=== PATIENT | male | born 1960 | race Caucasian/White ===

== ENCOUNTER 2017-07-11 22:36 | Emergency (ER) | payer MEDICAID, OTHER, SELFPAY ==
--- NOTE | 2017-07-11 23:02 | EDM.PDOC ---
ED HPI GENERAL MEDICAL PROBLEM - General Chief Complaint: ENT Problem Stated Complaint: NOSE BLEED Time Seen by Provider: 07/11/17 22:40 Source of Information: Reports: Patient History Limitations: Reports: No Limitations - History of Present Illness INITIAL COMMENTS - FREE TEXT/NARRATIVE: Ji comes to [facility] ED with a 30 min hx of acute nosebleed primarily from the R nares. There is no PMH of epistaxis. He takes 1 baby ASA daily. His general health includes HBP and hypercholesterolemia. nose Pain Score (Numeric/FACES): 10 - Related Data Allergies Allergy/AdvReac Type Severity Reaction Status Date / Time celecoxib [From Celebrex] Allergy Rash Verified 07/12/17 00:01 diclofenac sodium Allergy Stomach Verified 07/12/17 00:01 [From Voltaren] Upset Home Meds: Home Meds Aspirin [Ecotrin] 81 mg PO DAILY 06/11/15 [History] Lisinopril/Hydrochlorothiazide [Zestoretic 20-25 mg Tablet] 1 each PO DAILY [History] Past Medical History HEENT History: Reports: Impaired Vision Cardiovascular History: Reports: Hypertension Respiratory History: Reports: SOB, Other (See Below) Other Respiratory History: 5 MONTHS AGO Gastrointestinal History: Reports: GERD Musculoskeletal History: Reports: Other (See Below) Other Musculoskeletal History: RIGHT KNEE PAIN Endocrine/Metabolic History: Reports: Obesity/BMI 30+ - Past Surgical History GI Surgical History: Reports: Hernia, Abdominal, Hernia, Inguinal Musculoskeletal Surgical History: Reports: Shoulder Surgery Social & Family History - Tobacco Use Smoking Status *Q: Current Every Day Smoker - Alcohol Use Days Per Week of Alcohol Use: 4 Number of Drinks Per Day: 2 Total Drinks Per Week: 8 - Recreational Drug Use Recreational Drug Use: No ED ROS ENT - Review of Systems Review Of Systems: ROS reveals no pertinent complaints other than HPI. ED EXAM, ENT - Physical Exam Exam: See Below Exam Limited By: No Limitations General Appearance: Alert, WD/WN, Moderate Distress Eye Exam: Bilateral Eye: Normal Inspection, PERRL Ears: Normal External Exam, Normal TMs Nose: Active Bleeding (R nares) Mouth/Throat: Normal Gums, Normal Lips, Other (some clots and BRB from posterior hypopharynx) Head: Atraumatic, Normocephalic Neck: Normal Inspection, Supple, Non-Tender Respiratory/Chest: Lungs Clear Cardiovascular: Regular Rate, Rhythm Back: Normal Inspection Extremities: Normal Inspection Neurological: Alert, Oriented, CN II-XII Intact, No Motor/Sensory Deficits Psychiatric: Normal Affect, Anxious Skin: Warm, Decubitus Lymphatic: No Adenopathy ED ENT PROCEDURES - Additional/Other Procedure(s) Other (Free Text) Procedure(s): With patient consent, the nares were initially packed with cottone imed with Afrin Soln without benefit. Next, a 7.5 cm Rocket Rhino was prepped and inserted into the R nares, and inflated with 20 ml of air. Bleeding subsided within a minute, confirmed with absence of postnasal BRB drainage. Following observation, patient tolerated well. Course - Vital Signs Text/Narrative:: Patient tolerated procedure well. A Hydrocodone 5/325 was administered for comfort. Last Recorded V/S: Last Vital Signs Temp 36.7 C 07/11/17 23:05 Pulse 83 07/11/17 23:55 Resp 18 07/11/17 23:55 BP 141/84 H 07/11/17 23:55 Pulse Ox 98 07/11/17 23:55 - Orders/Labs/Meds Meds: Medications Discontinued Medications Generic Name Dose Route Start Last Admin Trade Name Bernardo PRN Reason Stop Dose Admin Hydrocodone Bitart/Acetaminophen 1 tab 07/11/17 23:10 07/11/17 23:15 Pinola 325-5 Mg PO 07/11/17 23:11 1 tab ONETIME ONE Administration Departure - Departure Time of Disposition: 23:25 Disposition: Home, Self-Care 01 Condition: Fair Clinical Impression: Anterior epistaxis - Discharge Information Instructions: Nosebleed Referrals: PCP,None [Primary Care Provider] - Forms: ED Department Discharge Additional Instructions: Keep the rhinorocket in your nose and see your primary care doctor to tomorrow. May comeback if symptoms gets worse in any way. - Problem List & Annotations (1) Anterior epistaxis SNOMED Code(s): 273736627 Code(s): R04.0 - EPISTAXIS Status: Acute Annotation/Comment:: I removed 5 ml of air with some improvement in intranasal discomfort. He has a medical leave note for tomorrow. - Problem List Review Problem List Initiated/Reviewed/Updated: Yes - Assessment/Plan Plan: Follow up with PCP in the next 1-3 days regarding managment.
[2017-07-11] MEDS ORDERED: Acetaminophen/HYDROcodone 325-5 MG Tab PO ONE (23:10)
[2017-07-12 00:12] VITALS: BP 141/84
== END 2017-07-11 23:56 | disposition home or self-care (01) ==
LOC: FB.ED 22:36
DX: R04.0 Epistaxis (principal); Z79.82 Long term (current) use of aspirin; Z88.8 Allergy status to other drugs, medicaments and biological substances
CPT/HCPCS: 30901; 30903; 99282; A4217; A9270

== ENCOUNTER 2019-06-11 08:33 | Day surgery (SDC) | payer MEDICAID, OTHER ==
[2019-06-11] MEDS ORDERED: Lactated Ringers 1,000 ML IV SCH (08:45)
[2019-06-11] MEDS ORDERED: Scopolamine 1.5 MG Transdermal Patch TRDERM ONE (08:45)
[2019-06-11] MEDS ORDERED: Sodium Chloride 0.9% 10 ML Syringe FLUSH PRN (08:45)
[2019-06-11] MEDS ORDERED: Acetaminophen 500 MG Tab PO ONE (08:45)
[2019-06-11] MEDS ORDERED: Gabapentin 300 MG Cap PO ONE (08:45)
[2019-06-11] MEDS ORDERED: Ropivacaine 49.25 ML, Ketorolac 30 MG, EPINEPHrine 0.5 MG, cloNIDine 80 MCG, Sodium Chl... INJECT SCH ×5 (08:45)
[2019-06-11] MEDS ORDERED: ceFAZolin 2 GM in Premix Bag 1 BAG IV ONE (11:00)
[2019-06-11] MEDS ORDERED: Tranexamic Acid 3,000 MG, Sodium Chloride 0.9% 100 ML IRR ONE ×2 (11:30)
== END 2019-06-11 09:40 | disposition home or self-care (01) ==
LOC: FB.SDS 08:33
PROVIDERS: ATTEND Orthopaedic Surgery
DX: M17.0 Bilateral primary osteoarthritis of knee (principal); I10 Essential (primary) hypertension; F17.220 Nicotine dependence, chewing tobacco, uncomplicated; E66.01 Morbid (severe) obesity due to excess calories; Z53.29 Procedure and treatment not carried out because of patient's decision for other reasons; Z68.41 Body mass index [BMI] 40.0-44.9, adult; Z79.82 Long term (current) use of aspirin; Z79.899 Other long term (current) drug therapy
CPT/HCPCS: 36415; 86850; 86900; 86901; 93005

== ENCOUNTER 2024-07-11 09:20 | Emergency (ER) | payer MEDICARE, OTHER ==
[2024-07-11 09:47] LABS: BASE EXCESS VENOUS,POC 0 mmol/L (-2 - 3+); PCO2 VENOUS,POC 42 mmHg (41-51); PH VENOUS,POC 7.39 pH Units (7.32-7.43)
[2024-07-11 09:51] LABS: BASOPHILS PERCENT AUTO 0.4 % (0.3-3.8); EOSINOPHILS ABSOLUTE AUTO 0.1 x10-3/uL (0.0-0.6); EOSINOPHILS PERCENT AUTO 0.8 % (0.1-6.8); HEMATOCRIT 41.8 % (38.3-50.1); LYMPHOCYTES ABSOLUTE AUTO 0.7 x10-3/uL (0.5-4.5); LYMPHOCYTES PERCENT AUTO 8.7 % (15.8-45.3); MEAN CORPUSCULAR HEMOGLOBIN 32.4 pg (27.0-33.3); MEAN CORPUSCULAR HGB CONC 33.6 g/dL (28.7-35.3); MEAN CORPUSCULAR VOLUME 96.4 fL (80.8-98.7); MEAN PLATELET VOLUME 7.2 fL (6.7-11.0); MONOCYTES ABSOLUTE AUTO 0.9 x10-3/uL (0.0-1.2); MONOCYTES PERCENT AUTO 11.1 % (5.5-15.2); NEUTROPHILS ABSOLUTE AUTO 6.5 x10-3/uL (1.7-6.9); PLATELET COUNT,PLT 230 x10(3)uL (117-477); RED BLOOD CELL COUNT 4.34 x10(6)uL (3.90-5.90); RED CELL DISTRIBUTION WIDTH 14.2 % (12.4-15.0); WHITE BLOOD CELL COUNT,WBC 8.3 x10-3/uL (3.2-10.1)
[2024-07-11 09:55] LABS: BLOOD UREA NITROGEN,BUN 10 mg/dL (7-18); CALCIUM 9.4 mg/dL (8.6-10.2); CARBON DIOXIDE,CO2 27 mmol/L (21-32); CHLORIDE,CL 105 mmol/L (100-110); ESTIMATED GFR 85 mL/min (>60); GLUCOSE RANDOM 129 mg/dL (80-116); POTASSIUM,K 3.9 mmol/L (3.5-5.3); SODIUM,NA 144 mmol/L (135-145)
[2024-07-11] MEDS: Nitroglycerin 0.4 MG Tab.SL SL ONE (10:05)
[2024-07-11] MEDS: Aspirin 81 MG Tab.Chew PO ONE (10:05)
[2024-07-11 10:06] LABS: A/G RATIO 0.6; ALANINE AMINOTRANSFERASE,ALT 137 U/L (12-36); ALBUMIN 2.8 g/dL (3.2-4.6); ALKALINE PHOSPHATASE 151 IU/L (56-112); PROTEIN TOTAL,TP 7.4 g/dL (6.0-8.0)
[2024-07-11 10:08] LABS: TROPONIN I 8.7 pg/mL (4.0-60.3)
[2024-07-11 10:11] LABS: ASPARTATE AMNIOTRANSFERASE,AST 160 IU/L (5-25)
[2024-07-11] MEDS ORDERED: Sodium Chloride 0.9% 10 ML Syringe FLUSH PRN (11:07)
[2024-07-11] MEDS: Iopamidol 755 Mg/ML 100 ML Bottle IV SCH (11:39)
[2024-07-11 12:24] VITALS: BP 145/99; PULSE 100
== END 2024-07-11 12:27 | disposition home or self-care (01) ==
LOC: FB.ED 09:20
DX: R07.81 Pleurodynia (principal); K80.20 Calculus of gallbladder without cholecystitis without obstruction; I10 Essential (primary) hypertension; E11.9 Type 2 diabetes mellitus without complications; E66.9 Obesity, unspecified; Z79.899 Other long term (current) drug therapy; Z79.84 Long term (current) use of oral hypoglycemic drugs; Z79.82 Long term (current) use of aspirin; Z88.1 Allergy status to other antibiotic agents; Z88.8 Allergy status to other drugs, medicaments and biological substances
CPT/HCPCS: 36415; 71045; 71275; 80053; 83880; 84484; 85025; 85379; 99284; 99285; A9270-GY; Q9967

== ENCOUNTER 2024-07-24 02:14 | Emergency (ER) | payer MEDICARE ==
[2024-07-24] MEDS: Sodium Chloride 0.9% 1,000 ML IV ONE ×2 (02:51→07:30)
[2024-07-24] MEDS: HYDROmorphone 2 MG/ML SDV IVPUSH ONE ×3 (02:52→09:46)
[2024-07-24 02:54] LABS: HEMATOCRIT 40.6 % (38.3-50.1); HEMOGLOBIN 13.5 g/dL (12.9-17.7); MEAN CORPUSCULAR HEMOGLOBIN 31.4 pg (27.0-33.3); MEAN CORPUSCULAR HGB CONC 33.2 g/dL (28.7-35.3); MEAN CORPUSCULAR VOLUME 94.7 fL (80.8-98.7); MEAN PLATELET VOLUME 7.4 fL (6.7-11.0); PLATELET COUNT,PLT 305 x10(3)uL (117-477); RED BLOOD CELL COUNT 4.29 x10(6)uL (3.90-5.90); WHITE BLOOD CELL COUNT,WBC 17.7 x10-3/uL (3.2-10.1)
[2024-07-24 03:10] LABS: BLOOD UREA NITROGEN,BUN 11 mg/dL (7-18); CALCIUM 9.4 mg/dL (8.6-10.2); CARBON DIOXIDE,CO2 26 mmol/L (21-32); CHLORIDE,CL 103 mmol/L (100-110); ESTIMATED GFR 85 mL/min (>60); GLUCOSE RANDOM 189 mg/dL (80-116); POTASSIUM,K 3.5 mmol/L (3.5-5.3); SODIUM,NA 139 mmol/L (135-145)
[2024-07-24 03:15] LABS: BAND PERCENT MAN 8 % (0-6); LYMPHOCYTES PERCENT MAN 7 % (13-37); MONOCYTES PERCENT MAN 4 % (4-12); SEG NEUTROPHILS PERCENT MAN 81 % (46-82)
[2024-07-24 03:20] LABS: A/G RATIO 0.8; ALBUMIN 3.1 g/dL (3.2-4.6); ALKALINE PHOSPHATASE 301 IU/L (56-112); ASPARTATE AMNIOTRANSFERASE,AST 123 IU/L (5-25); BILIRUBIN TOTAL 2.6 mg/dL (0.1-1.3); PROTEIN TOTAL,TP 7.1 g/dL (6.0-8.0)
[2024-07-24 03:23] LABS: TROPONIN I 7.6 pg/mL (4.0-60.3)
[2024-07-24 03:31] LABS: ALANINE AMINOTRANSFERASE,ALT 201 U/L (12-36)
[2024-07-24] MEDS: Iopamidol 755 Mg/ML 100 ML Bottle IV ONE (03:51)
[2024-07-24] MEDS ORDERED: Piperacillin/Tazobactam 3.375 GM in Sodium Chloride 0.9% 50 ML IV SCH (07:15)
[2024-07-24 07:18] VITALS: BP 121/83; PULSE 99
[2024-07-24] MEDS: Piperacillin/Tazobactam 4.5 GM in Sodium Chloride 0.9% 100 ML IV ONE (07:31)
== END 2024-07-24 09:59 ==
LOC: FB.ED 02:14
DX: K81.9 Cholecystitis, unspecified (principal); I25.10 Atherosclerotic heart disease of native coronary artery without angina pectoris; I10 Essential (primary) hypertension; M19.90 Unspecified osteoarthritis, unspecified site; E11.9 Type 2 diabetes mellitus without complications; Z79.82 Long term (current) use of aspirin; Z79.899 Other long term (current) drug therapy; Z79.84 Long term (current) use of oral hypoglycemic drugs; Z88.1 Allergy status to other antibiotic agents; Z88.6 Allergy status to analgesic agent
CPT/HCPCS: 36415; 74177; 80053; 83605; 83690; 84484; 85025; 93005; 93010; 96361; 96365; 96375; 96376; 99284-25; 99285; J1171; J2543; J3490; J7030; Q9967